=== PATIENT | female | born 1955 | race Caucasian/White ===

== ENCOUNTER 2016-12-14 14:26 | Outpatient (CLI) | payer BC ==
[2013-11-10 17:07] VITALS: O2SAT 94
== END 2016-12-14 14:27 | disposition home or self-care (01) ==
LOC: CONVCARE 14:26
PROVIDERS: ATTEND Orthopaedic Surgery
DX: M79.644 Pain in right finger(s) (principal)
CPT/HCPCS: 73130

== ENCOUNTER 2016-12-28 15:45 | Outpatient (CLI) | payer BC ==
[2013-11-10 17:07] VITALS: O2SAT 94
== END 2016-12-28 15:46 | disposition home or self-care (01) ==
LOC: CONVCARE 15:45
PROVIDERS: ATTEND Orthopaedic Surgery
DX: L72.0 Epidermal cyst (principal)
CPT/HCPCS: 87070; 87075

== ENCOUNTER 2017-07-03 09:39 | Day surgery (SDC) | payer BC ==
[~2017-07-03 09:39] MED LIST: LIDOCAINE HCL 1% MPF SOL ONE; PROPOFOL 500 MG/50 ML EMU IV ONE
[2017-07-03 11:08] VITALS: TEMP 98.2
[2017-07-03 12:10] VITALS: BP 133/73; PULSE 70; RESP 20; O2SAT 100
== END 2017-07-03 12:15 | disposition home or self-care (01) ==
LOC: SURG 09:39
PROVIDERS: ATTEND Internal Medicine Gastroenterology
DX: K22.70 Barrett's esophagus without dysplasia (principal); K21.9 Gastro-esophageal reflux disease without esophagitis; K44.9 Diaphragmatic hernia without obstruction or gangrene
CPT/HCPCS: 99001; J2001; J2704